=== PATIENT | female | born 1960 | race Caucasian/White ===

== ENCOUNTER 2018-04-01 13:09 | Emergency (ER) | payer MEDICARE, MEDICAID ==
[~2018-04-01] VITALS: Ht 157.5 cm; Wt 82.3 kg
[~2018-04-01 13:09] MED LIST: CYCL-1 PO; FLUO20CA39 PO; HYDR1TAB PO; MOT200T PO
[2018-04-01 13:31] VITALS: BP 130/78
== END 2018-04-01 14:37 | disposition home or self-care (01) ==
LOC: ER 13:10
DX: H83.8X3 Other specified diseases of inner ear, bilateral (principal); G89.29 Other chronic pain; R10.84 Generalized abdominal pain; J45.909 Unspecified asthma, uncomplicated; M19.90 Unspecified osteoarthritis, unspecified site; Z90.49 Acquired absence of other specified parts of digestive tract; Z90.710 Acquired absence of both cervix and uterus; Z87.442 Personal history of urinary calculi; Z88.5 Allergy status to narcotic agent; Z79.899 Other long term (current) drug therapy
CPT/HCPCS: 99281

== ENCOUNTER 2018-04-08 13:57 | Emergency (ER) | payer MEDICARE, MEDICAID ==
[~2018-04-08] VITALS: Ht 157.5 cm; Wt 69.0 kg
[2018-04-08] MEDS ORDERED: ATRNS (15:03)
[2018-04-08 16:09] VITALS: BP 128/99
== END 2018-04-08 16:12 | disposition home or self-care (01) ==
LOC: ER 13:57
DX: H61.22 Impacted cerumen, left ear (principal); H66.93 Otitis media, unspecified, bilateral; J34.3 Hypertrophy of nasal turbinates
CPT/HCPCS: 99282

== ENCOUNTER 2018-09-28 12:20 | Emergency (ER) | payer MEDICARE, MEDICAID ==
[~2018-09-28] VITALS: Ht 157.5 cm; Wt 84.1 kg
[~2018-09-28 12:20] MED LIST changes: +ATRNS
[2018-09-28 12:22] VITALS: BP 149/83
[2018-09-28] MEDS ORDERED: CIPR7.5D2 LEFT EAR (13:19)
[2018-09-28] MEDS ORDERED: ACET-2119 PO (13:19)
[2018-09-28] MEDS ORDERED: DEC4T PO (13:19)
== END 2018-09-28 13:38 | disposition home or self-care (01) ==
LOC: ER 12:20
DX: H60.92 Unspecified otitis externa, left ear (principal); M54.2 Cervicalgia; J45.909 Unspecified asthma, uncomplicated; M19.90 Unspecified osteoarthritis, unspecified site; Z90.49 Acquired absence of other specified parts of digestive tract; Z90.710 Acquired absence of both cervix and uterus; Z88.5 Allergy status to narcotic agent; Z79.2 Long term (current) use of antibiotics; Z79.899 Other long term (current) drug therapy
CPT/HCPCS: 99283

== ENCOUNTER 2019-06-09 10:45 | Emergency (ER) | payer MEDICARE, MEDICAID ==
[~2019-06-09] VITALS: Ht 149.9 cm; Wt 86.0 kg
[~2019-06-09 10:45] MED LIST changes: +CIPR7.5D2 LEFT EAR
[2019-06-09 10:57] VITALS: BP 151/77
[2019-06-09] MEDS ORDERED: NEOM10DR45 OT (12:17)
== END 2019-06-09 12:34 | disposition home or self-care (01) ==
LOC: ER 10:45
DX: H61.21 Impacted cerumen, right ear (principal); H60.91 Unspecified otitis externa, right ear; J45.909 Unspecified asthma, uncomplicated; M19.90 Unspecified osteoarthritis, unspecified site; F41.9 Anxiety disorder, unspecified; F32.9 Major depressive disorder, single episode, unspecified; Z90.49 Acquired absence of other specified parts of digestive tract; Z87.442 Personal history of urinary calculi; Z90.710 Acquired absence of both cervix and uterus; Z88.5 Allergy status to narcotic agent; Z79.2 Long term (current) use of antibiotics; Z79.899 Other long term (current) drug therapy
CPT/HCPCS: 69209; 99283

== ENCOUNTER 2019-09-16 18:02 | Emergency (ER) | payer MEDICARE, MEDICAID ==
[~2019-09-16] VITALS: Ht 157.5 cm; Wt 93.2 kg
[2019-09-16 18:06] VITALS: BP 173/90
[2019-09-16] MEDS ORDERED: HYDROcodone/acetaminophen 5mg/325mg tablet PO ONE (18:45)
[2019-09-16 18:46] LABS: CLARITY,URINE CLOUDY (Clear); COLOR,URINE YELLOW (Yellow); GLUCOSE, URINE NEGATIVE (Neg); KETONES,URINE NEGATIVE (Neg); LEUKOCYTE ESTERASE ,URINE NEGATIVE (Neg); NITRITES, URINE NEGATIVE (Neg); OCCULT BLOOD,URINE TRACE-INTACT (Neg); PROTEIN,URINE TRACE mg/dl (Neg); UROBILINOGEN,URINE 0.2 E.U/dL (0.2-1.0)
[2019-09-16 18:47] LABS: URINE HCG NEGATIVE (NEG)
[2019-09-16 18:48] LABS: UA COLLECTION TYPE CLN CATCH MIDSTREAM
[2019-09-16 18:52] LABS: SQUAMOUS EPITHELIAL CELL,UR MANY /LPF (FEW)
[2019-09-16 18:53] LABS: BASOPHILS # (AUTO) 0.1 X10'3 (0-0.2); BASOPHILS % (AUTO) 0.9 % (0-1); EOSINOPHILS # (AUTO) 0.1 X10'3 (0-0.9); EOSINOPHILS % (AUTO) 1.5 % (0-6); HEMATOCRIT 38.2 % (35.0-45.0); HEMOGLOBIN 12.8 g/dl (12.0-16.0); LYMPHOCYTES # (AUTO) 3.2 X10'3 (1.1-4.8); LYMPHOCYTES % (AUTO) 45.1 % (21-51); MEAN CORPUSCULAR HEMOGLOBIN 30.3 PG (27.0-31.0); MEAN CORPUSCULAR HGB CONC 33.5 g/dL (33.0-36.5); MEAN CORPUSCULAR VOLUME 90.3 FL (78-98); MEAN PLATELET VOLUME 7.9 FL (7.4-10.4); MONOCYTES # (AUTO) 0.7 X10'3 (0-0.9); MONOCYTES % (AUTO) 9.2 % (2-12); NEUTROPHILS % (AUTO) 43.3 % (42-75); PLATELET COUNT 326 X10'3 (140-440); RED BLOOD COUNT 4.23 X10'6 (4.20-5.60); RED CELL DISTRIBUTION WIDTH 13.5 % (11.5-14.5); WHITE BLOOD COUNT 7.1 X10'3 (4.5-11.0)
[2019-09-16 18:54] LABS: BACTERIA,URINE FEW /HPF (Neg); WBC,URINE 0-4 /HPF (0-4)
[2019-09-16 18:59] LABS: ALANINE AMINOTRANSFERASE 47 U/L (12-78); ALKALINE PHOSPHATASE 99 IU/L (46-116); ANION GAP 9 (8-16); ASPARTATE AMINO TRANSFERASE 27 U/L (10-37); BILIRUBIN,TOTAL 0.2 MG/DL (0.1-1.0); BLOOD UREA NITROGEN 14 MG/DL (7-18); BUN/CREATININE RATIO 10.7 (6.6-38.0); CHLORIDE 106 MMOL/L (99-107); CREATININE 1.31 MG/DL (0.40-0.90); GLUCOSE 141 MG/DL (70-104); LIPASE 230 U/L (73-393); POTASSIUM 3.8 MMOL/L (3.5-5.1); SODIUM 143 MMOL/L (135-145); TOTAL CARBON DIOXIDE 27.8 MMOL/L (24-32); TOTAL PROTEIN 8.1 G/DL (6.4-8.2); eGFR 42 ML/MIN
[2019-09-16] MEDS ORDERED: morphine 4 MG/ML inj SYRINge IM ONE (19:10)
[2019-09-16] MEDS ORDERED: ACET-2119 PO (19:20)
[2019-09-16] MEDS ORDERED: acetaminophen 325mg tablet PO ONE (19:25)
== END 2019-09-16 19:34 | disposition home or self-care (01) ==
LOC: ER 18:03
DX: R10.9 Unspecified abdominal pain (principal); R07.81 Pleurodynia; M54.9 Dorsalgia, unspecified; J45.909 Unspecified asthma, uncomplicated; M19.90 Unspecified osteoarthritis, unspecified site; F41.9 Anxiety disorder, unspecified; F32.9 Major depressive disorder, single episode, unspecified; F10.99 Alcohol use, unspecified with unspecified alcohol-induced disorder; Z87.442 Personal history of urinary calculi; Z90.49 Acquired absence of other specified parts of digestive tract; Z90.710 Acquired absence of both cervix and uterus; Z90.5 Acquired absence of kidney; Z88.5 Allergy status to narcotic agent; Z79.899 Other long term (current) drug therapy; Y90.9 Presence of alcohol in blood, level not specified
CPT/HCPCS: 36415; 80053; 81001; 81025; 83690; 85025; 99283

== ENCOUNTER 2020-06-15 10:28 | Emergency (ER) | payer MEDICARE, MEDICAID ==
[~2020-06-15] VITALS: Ht 149.9 cm; Wt 81.8 kg
[2020-06-15 10:32] VITALS: BP 136/75
[2020-06-15] MEDS ORDERED: AMOX-419 PO (10:42)
== END 2020-06-15 10:54 | disposition home or self-care (01) ==
LOC: ER 10:28
DX: H66.92 Otitis media, unspecified, left ear (principal); M19.90 Unspecified osteoarthritis, unspecified site; F32.9 Major depressive disorder, single episode, unspecified; J45.909 Unspecified asthma, uncomplicated; R05 Cough; J02.9 Acute pharyngitis, unspecified; Z90.710 Acquired absence of both cervix and uterus; Z90.49 Acquired absence of other specified parts of digestive tract; Z72.89 Other problems related to lifestyle; Z88.5 Allergy status to narcotic agent; Z79.899 Other long term (current) drug therapy
CPT/HCPCS: 99284

== ENCOUNTER 2020-06-17 11:42 | Emergency (ER) | payer MEDICARE, MEDICAID ==
[~2020-06-17] VITALS: Ht 149.9 cm; Wt 81.8 kg
[~2020-06-17 11:42] MED LIST changes: +AMOX-419 PO
[2020-06-17 11:44] VITALS: BP 130/74
[2020-06-17] MEDS ORDERED: ALBU6.7H9 INH (11:53)
== END 2020-06-17 12:13 | disposition home or self-care (01) ==
LOC: ER 11:42
DX: J06.9 Acute upper respiratory infection, unspecified (principal); R05 Cough; H92.02 Otalgia, left ear; J45.909 Unspecified asthma, uncomplicated; M19.90 Unspecified osteoarthritis, unspecified site; F41.9 Anxiety disorder, unspecified; F32.9 Major depressive disorder, single episode, unspecified; Z87.440 Personal history of urinary (tract) infections; Z87.442 Personal history of urinary calculi; Z90.49 Acquired absence of other specified parts of digestive tract; Z90.710 Acquired absence of both cervix and uterus; Z72.89 Other problems related to lifestyle; Z88.5 Allergy status to narcotic agent; Z79.2 Long term (current) use of antibiotics; Z79.899 Other long term (current) drug therapy
CPT/HCPCS: 99283

== ENCOUNTER 2020-08-29 11:59 | Emergency (ER) | payer MEDICARE, MEDICAID ==
[~2020-08-29] VITALS: Ht 149.9 cm; Wt 82.3 kg
[~2020-08-29 11:59] MED LIST changes: +ALBU6.7H9 INH; -AMOX-419 PO
[2020-08-29 12:03] VITALS: BP 131/77
[2020-08-29] MEDS ORDERED: TETanus/Pertussis (Acell)/Diphther VAC/PF (Tdap-Adult) 0.5ml syringe IMVAC ONE (12:55)
[2020-08-29] MEDS ORDERED: LIDOcaine/epinephrine/tetracaine TOPICAL sol 3 ML syringe TOP ONE (12:55)
[2020-08-29] MEDS ORDERED: BACI1PAC7 TOP (13:00)
== END 2020-08-29 13:47 | disposition home or self-care (01) ==
LOC: ER 11:59
DX: S60.411A Abrasion of left index finger, initial encounter (principal); M19.90 Unspecified osteoarthritis, unspecified site; F41.9 Anxiety disorder, unspecified; F32.9 Major depressive disorder, single episode, unspecified; J45.909 Unspecified asthma, uncomplicated; Z90.49 Acquired absence of other specified parts of digestive tract; Z90.710 Acquired absence of both cervix and uterus; Z88.5 Allergy status to narcotic agent; Z79.899 Other long term (current) drug therapy; W45.8XXA Other foreign body or object entering through skin, initial encounter; Y93.89 Activity, other specified; Y92.89 Other specified places as the place of occurrence of the external cause; Y99.8 Other external cause status
CPT/HCPCS: 12001; 90471; 90715; 99283

== ENCOUNTER → 2020-11-18 | Emergency (ER) | payer MEDICARE, MEDICAID ==
[~2020-11-18] VITALS: Ht 149.9 cm; Wt 83.3 kg
[2020-11-18 08:42] VITALS: BP 121/77
== END | disposition home or self-care (01) ==
LOC: ER 08:32
DX: R20.2 Paresthesia of skin (principal); R20.0 Anesthesia of skin; I50.9 Heart failure, unspecified; I13.0 Hypertensive heart and chronic kidney disease with heart failure and stage 1 through stage 4 chronic kidney disease, or unspecified chronic kidney disease; N18.9 Chronic kidney disease, unspecified; M19.90 Unspecified osteoarthritis, unspecified site; F41.9 Anxiety disorder, unspecified; F32.9 Major depressive disorder, single episode, unspecified; Z90.49 Acquired absence of other specified parts of digestive tract; Z72.89 Other problems related to lifestyle; Z88.5 Allergy status to narcotic agent; Z79.899 Other long term (current) drug therapy
CPT/HCPCS: 99281

== ENCOUNTER 2021-01-09 11:46 | Emergency (ER) | payer MEDICARE, MEDICAID ==
[~2021-01-09] VITALS: Ht 157.5 cm; Wt 90.0 kg
[2021-01-09 11:47] VITALS: BP 125/74
[2021-01-09] MEDS ORDERED: acetaminophen 325mg tablet PO ONE (12:45)
== END 2021-01-09 17:59 | disposition home or self-care (01) ==
LOC: ER 11:47
DX: S93.401A Sprain of unspecified ligament of right ankle, initial encounter (principal); S80.211A Abrasion, right knee, initial encounter; M25.571 Pain in right ankle and joints of right foot; R53.1 Weakness; J45.909 Unspecified asthma, uncomplicated; I13.0 Hypertensive heart and chronic kidney disease with heart failure and stage 1 through stage 4 chronic kidney disease, or unspecified chronic kidney disease; N18.9 Chronic kidney disease, unspecified; M19.90 Unspecified osteoarthritis, unspecified site; F41.9 Anxiety disorder, unspecified; F32.9 Major depressive disorder, single episode, unspecified; Z87.442 Personal history of urinary calculi; Z87.440 Personal history of urinary (tract) infections; Z90.49 Acquired absence of other specified parts of digestive tract; Z90.710 Acquired absence of both cervix and uterus; Z72.89 Other problems related to lifestyle; Z88.5 Allergy status to narcotic agent; Z79.2 Long term (current) use of antibiotics; Z79.899 Other long term (current) drug therapy; W19.XXXA Unspecified fall, initial encounter; Y93.89 Activity, other specified; Y92.89 Other specified places as the place of occurrence of the external cause; Y99.8 Other external cause status
CPT/HCPCS: 73610; 99283

== ENCOUNTER 2021-06-17 12:59 | Emergency (ER) | payer BC, MEDICAID ==
[~2021-06-17] VITALS: Ht 149.9 cm; Wt 81.8 kg
[2021-06-17] MEDS ORDERED: CARB15DR65 EACH EAR (14:04)
== END 2021-06-17 14:13 | disposition home or self-care (01) ==
LOC: ER 13:00
DX: U07.1 COVID-19 (principal); J02.9 Acute pharyngitis, unspecified; R05 Cough; H61.23 Impacted cerumen, bilateral; I13.0 Hypertensive heart and chronic kidney disease with heart failure and stage 1 through stage 4 chronic kidney disease, or unspecified chronic kidney disease; N18.9 Chronic kidney disease, unspecified; J45.909 Unspecified asthma, uncomplicated; M19.90 Unspecified osteoarthritis, unspecified site; F41.9 Anxiety disorder, unspecified; F32.9 Major depressive disorder, single episode, unspecified; Z87.442 Personal history of urinary calculi; Z87.440 Personal history of urinary (tract) infections; Z90.49 Acquired absence of other specified parts of digestive tract; Z90.710 Acquired absence of both cervix and uterus; Z72.89 Other problems related to lifestyle; Z88.5 Allergy status to narcotic agent; Z79.2 Long term (current) use of antibiotics; Z79.899 Other long term (current) drug therapy
CPT/HCPCS: 87635; 99283; C9803

== ENCOUNTER 2021-06-18 19:09 | Emergency (ER) | payer BC, MEDICAID ==
[~2021-06-18] VITALS: Ht 144.8 cm; Wt 81.8 kg
[~2021-06-18 19:09] MED LIST changes: +CARB15DR65 EACH EAR
[2021-06-18] MEDS ORDERED: aspirin 81mg tab.chew PO ONE (20:00)
--- NOTE | 2021-06-18 20:18 | NUR ---
patient had complaint of crushing chest pain in lobby while waiting, now patient states her CP is gone, her ear is just really bothering her.
--- NOTE | 2021-06-18 20:26 | NUR ---
patient refusing IV
[2021-06-18 20:58] LABS: BASOPHILS % (AUTO) 0.3 % (0-1); EOSINOPHILS % (AUTO) 0.6 % (0-6); HEMATOCRIT 40.5 % (35.0-45.0); HEMOGLOBIN 13.5 g/dl (12.0-16.0); LYMPHOCYTES # (AUTO) 1.6 X10'3 (1.1-4.8); LYMPHOCYTES % (AUTO) 27.9 % (21-51); MEAN CORPUSCULAR HEMOGLOBIN 30.4 PG (27.0-31.0); MEAN CORPUSCULAR HGB CONC 33.5 g/dL (33.0-36.5); MEAN CORPUSCULAR VOLUME 90.7 FL (78-98); MEAN PLATELET VOLUME 7.5 FL (7.4-10.4); MONOCYTES # (AUTO) 0.5 X10'3 (0-0.9); MONOCYTES % (AUTO) 8.6 % (2-12); NEUTROPHILS # (AUTO) 3.7 X10'3 (1.8-7.7); NEUTROPHILS % (AUTO) 62.6 % (42-75); PLATELET COUNT 325 X10'3 (140-440); RED BLOOD COUNT 4.46 X10'6 (4.20-5.60); RED CELL DISTRIBUTION WIDTH 13.9 % (11.5-14.5); WHITE BLOOD COUNT 5.9 X10'3 (4.5-11.0)
[2021-06-18] MEDS ORDERED: ondansetron 4mg rapidly disintigrating tab PO ONE (21:00)
[2021-06-18 21:08] LABS: ALANINE AMINOTRANSFERASE 50 U/L (12-78); ALBUMIN 4.2 G/DL (3.4-5.0); ALBUMIN/GLOBULIN RATIO 1.1 (1.1-1.5); ALKALINE PHOSPHATASE 95 IU/L (46-116); ANION GAP 9 (8-16); ASPARTATE AMINO TRANSFERASE 24 U/L (10-37); BILIRUBIN,TOTAL 0.3 MG/DL (0.1-1.0); BLOOD UREA NITROGEN 19 MG/DL (7-18); BUN/CREATININE RATIO 11.5 (6.6-38.0); CALCIUM 8.5 MG/DL (8.5-10.1); CHLORIDE 105 MMOL/L (99-107); CREATININE 1.65 MG/DL (0.40-0.90); GLUCOSE 151 MG/DL (70-104); SODIUM 143 MMOL/L (135-145); TOTAL CARBON DIOXIDE 29.1 MMOL/L (24-32); TOTAL PROTEIN 8.1 G/DL (6.4-8.2); eGFR 32 ML/MIN
--- NOTE | 2021-06-18 21:12 | NUR ---
irrigated both ears, much ear wax and "gunk" came out, states that she can hear much better out of the right now and the left feels better but still not as good as the right. Patient also complained of being nauseous and dizzy after irrigation. KANNAN Melendez was made aware of patient symptoms, orders received, see mar. patient has cold compress to forehead and light turned off per patient request. VS are stable. will monitor.
[2021-06-18 21:15] LABS: MAGNESIUM 2.2 MG/DL (1.5-2.4)
[2021-06-18 23:41] VITALS: BP 145/71
--- NOTE | 2021-06-18 23:42 | NUR ---
PATIENT RECEIVED DC INSTRUCTIONS AND ACKNOWLEDGED UNDERSTANDING. [facility] WAS CALLED AND PATIENT WAS WALKED OUTSIDE TO WAIT. PATIENT WAS VERY AMICABLE AND THANKFUL FOR HER CARE. PATIENT DC HOME.
== END 2021-06-18 23:43 | disposition home or self-care (01) ==
LOC: ER 19:09
DX: H61.23 Impacted cerumen, bilateral (principal); R07.89 Other chest pain; F41.9 Anxiety disorder, unspecified; I13.0 Hypertensive heart and chronic kidney disease with heart failure and stage 1 through stage 4 chronic kidney disease, or unspecified chronic kidney disease; N18.9 Chronic kidney disease, unspecified; J45.909 Unspecified asthma, uncomplicated; M19.90 Unspecified osteoarthritis, unspecified site; F32.9 Major depressive disorder, single episode, unspecified; Z87.442 Personal history of urinary calculi; Z87.440 Personal history of urinary (tract) infections; Z90.49 Acquired absence of other specified parts of digestive tract; Z90.710 Acquired absence of both cervix and uterus; Z72.89 Other problems related to lifestyle; Z88.5 Allergy status to narcotic agent; Z79.2 Long term (current) use of antibiotics; Z79.899 Other long term (current) drug therapy
CPT/HCPCS: 36415; 69209; 71045; 80053; 83735; 83880; 84484; 85025; 93005; 99285

== ENCOUNTER 2022-05-06 16:04 | Emergency (ER) | payer BC, MEDICAID ==
[~2022-05-06] VITALS: Ht 149.9 cm; Wt 88.2 kg
[2022-05-06 16:38] VITALS: BP 100/73
[2022-05-06] MEDS ORDERED: ondansetron/PF 4mg/2ml inj IV ONE (16:45)
[2022-05-06] MEDS ORDERED: ketamine 50 mg/ml 10ml vial IV ONE (17:40)
[2022-05-06] MEDS ORDERED: LIDOcaine 1% W/epiNEPHrine 1:100,000 20ml vial SQ ONE (17:50)
--- NOTE | 2022-05-06 17:55 | NUR ---
LIDOCAIN PLACED AT BEDSIDE FOR ER MD
[2022-05-06] MEDS: morphine 4 MG/ML inj SYRINge IV PRN ×2 (19:05→19:06)
== END 2022-05-06 19:09 | disposition home or self-care (01) ==
LOC: ER 16:05
DX: S52.501A Unspecified fracture of the lower end of right radius, initial encounter for closed fracture (principal); W19.XXXA Unspecified fall, initial encounter; Y93.89 Activity, other specified; Y92.89 Other specified places as the place of occurrence of the external cause; Y99.8 Other external cause status
CPT/HCPCS: 25605; 73100; 73110; 94799; 99284; J3490; A4565; A4615; A6449

== ENCOUNTER 2022-05-15 23:49 | Emergency (ER) | payer BC, MEDICAID ==
[~2022-05-15] VITALS: Ht 149.9 cm; Wt 83.2 kg
[2022-05-16 02:41] LABS: BASOPHILS % (AUTO) 0.6 % (0-1); EOSINOPHILS # (AUTO) 0.3 X10'3 (0-0.9); EOSINOPHILS % (AUTO) 4.2 % (0-6); HEMATOCRIT 37.4 % (35.0-45.0); HEMOGLOBIN 12.4 g/dl (12.0-16.0); LYMPHOCYTES # (AUTO) 2.7 X10'3 (1.1-4.8); MEAN CORPUSCULAR HEMOGLOBIN 29.7 PG (27.0-31.0); MEAN CORPUSCULAR HGB CONC 33.2 g/dL (33.0-36.5); MEAN CORPUSCULAR VOLUME 89.4 FL (78-98); MEAN PLATELET VOLUME 7.7 FL (7.4-10.4); MONOCYTES % (AUTO) 11.9 % (2-12); NEUTROPHILS % (AUTO) 50.3 % (42-75); PLATELET COUNT 378 X10'3 (140-440); RED BLOOD COUNT 4.18 X10'6 (4.20-5.60); RED CELL DISTRIBUTION WIDTH 13.9 % (11.5-14.5)
[2022-05-16 02:57] LABS: ALANINE AMINOTRANSFERASE 53 U/L (12-78); ALKALINE PHOSPHATASE 112 IU/L (46-116); ANION GAP 13 (8-16); ASPARTATE AMINO TRANSFERASE 24 U/L (10-37); BILIRUBIN,TOTAL 0.3 MG/DL (0.1-1.0); BLOOD UREA NITROGEN 19 MG/DL (7-18); CHLORIDE 107 MMOL/L (99-107); CREATININE 1.46 MG/DL (0.40-0.90); GLUCOSE 124 MG/DL (70-104); POTASSIUM 3.9 MMOL/L (3.5-5.1); SODIUM 144 MMOL/L (135-145); TOTAL CARBON DIOXIDE 24.3 MMOL/L (24-32); TOTAL PROTEIN 8.2 G/DL (6.4-8.2); eGFR 37 ML/MIN
[2022-05-16 05:29] VITALS: BP 92/74
== END 2022-05-16 06:50 | disposition home or self-care (01) ==
LOC: ER 23:51
DX: J06.9 Acute upper respiratory infection, unspecified (principal); Z20.822 Contact with and (suspected) exposure to COVID-19; I13.0 Hypertensive heart and chronic kidney disease with heart failure and stage 1 through stage 4 chronic kidney disease, or unspecified chronic kidney disease; E11.22 Type 2 diabetes mellitus with diabetic chronic kidney disease; Z79.2 Long term (current) use of antibiotics; N18.9 Chronic kidney disease, unspecified; Z88.5 Allergy status to narcotic agent; Z79.899 Other long term (current) drug therapy; Z59.00 Homelessness unspecified
CPT/HCPCS: 36415; 71045; 80053; 83880; 84484; 85025; 87502; 87503; 87635; 93005; 99285; C9803; A4615

== ENCOUNTER 2024-02-13 10:01 | Emergency (ER) | payer BC, MEDICAID ==
[~2024-02-13] VITALS: Ht 149.9 cm; Wt 90.0 kg
[~2024-02-13 10:01] MED LIST changes: +ALBU6.7H14 INH; -ALBU6.7H9 INH
[2024-02-13 10:05] VITALS: TEMP 98.7
[2024-02-13 10:59] LABS: BASOPHILS # (AUTO) 0.1 X10'3 (0-0.2); BASOPHILS % (AUTO) 0.9 % (0-1); EOSINOPHILS # (AUTO) 0.2 X10'3 (0-0.9); EOSINOPHILS % (AUTO) 2.7 % (0-6); HEMATOCRIT 39.2 % (35.0-45.0); HEMOGLOBIN 13.1 g/dl (12.0-16.0); LYMPHOCYTES # (AUTO) 2.9 X10'3 (1.1-4.8); LYMPHOCYTES % (AUTO) 40.3 % (21-51); MEAN CORPUSCULAR HEMOGLOBIN 30.6 PG (27.0-31.0); MEAN CORPUSCULAR HGB CONC 33.4 g/dL (33.0-36.5); MEAN CORPUSCULAR VOLUME 91.6 FL (78-98); MEAN PLATELET VOLUME 7.7 FL (7.4-10.4); MONOCYTES # (AUTO) 0.5 X10'3 (0-0.9); MONOCYTES % (AUTO) 6.7 % (2-12); NEUTROPHILS # (AUTO) 3.5 X10'3 (1.8-7.7); NEUTROPHILS % (AUTO) 49.4 % (42-75); PLATELET COUNT 363 X10'3 (140-440); RED BLOOD COUNT 4.28 X10'6 (4.20-5.60); RED CELL DISTRIBUTION WIDTH 14.2 % (11.5-14.5); WHITE BLOOD COUNT 7.1 X10'3 (4.5-11.0)
[2024-02-13 11:27] LABS: BILIRUBIN,URINE NEGATIVE (Neg); CLARITY,URINE SLIGHTLY CLOUDY (Clear); COLOR,URINE YELLOW (Yellow); GLUCOSE, URINE NEGATIVE (Neg); KETONES,URINE NEGATIVE (Neg); LEUKOCYTE ESTERASE ,URINE NEGATIVE (Neg); NITRITES, URINE NEGATIVE (Neg); OCCULT BLOOD,URINE TRACE-INTACT (Neg); PROTEIN,URINE TRACE mg/dl (Neg); UROBILINOGEN,URINE 0.2 E.U/dL (0.2-1.0)
[2024-02-13 11:37] LABS: ALANINE AMINOTRANSFERASE 35 U/L (12-78); ALBUMIN 3.5 G/DL (3.4-5.0); ALBUMIN/GLOBULIN RATIO 0.9 (1.1-1.5); ALKALINE PHOSPHATASE 91 IU/L (46-116); ANION GAP 10 (8-16); ASPARTATE AMINO TRANSFERASE 16 U/L (10-37); BILIRUBIN,TOTAL 0.5 MG/DL (0.1-1.0); BLOOD UREA NITROGEN 17 MG/DL (7-18); BUN/CREATININE RATIO 11.8 (10.0-20.0); CALCIUM 9.1 MG/DL (8.5-10.1); CHLORIDE 106 MMOL/L (99-107); CREATININE 1.44 MG/DL (0.40-0.90); GLUCOSE 164 MG/DL (70-104); LIPASE 49 U/L (16-77); POTASSIUM 3.6 MMOL/L (3.5-5.1); SODIUM 143 MMOL/L (135-145); TOTAL CARBON DIOXIDE 26.6 MMOL/L (24-32); TOTAL PROTEIN 7.6 G/DL (6.4-8.2); eCRCL 28 ML/MIN; eGFR 37 ML/MIN
[2024-02-13 11:43] LABS: SQUAMOUS EPITHELIAL CELL,UR MANY /LPF (FEW); UA COLLECTION TYPE NON-SPECIFIED
[2024-02-13 11:44] LABS: BACTERIA,URINE 2+ /HPF (Neg); RBC,URINE 0-2 /HPF (0-2); WBC,URINE 0-4 /HPF (0-4)
[2024-02-13 13:59] VITALS: BP 140/71; PULSE 74; RESP 18; O2SAT 99
== END 2024-02-13 14:00 | disposition home or self-care (01) ==
LOC: ER 10:01
DX: R10.84 Generalized abdominal pain (principal); Z88.8 Allergy status to other drugs, medicaments and biological substances; I11.0 Hypertensive heart disease with heart failure; I50.9 Heart failure, unspecified; E78.00 Pure hypercholesterolemia, unspecified; J45.909 Unspecified asthma, uncomplicated; E11.9 Type 2 diabetes mellitus without complications; M19.90 Unspecified osteoarthritis, unspecified site; F32.9 Major depressive disorder, single episode, unspecified; F41.9 Anxiety disorder, unspecified; Z90.49 Acquired absence of other specified parts of digestive tract; Z90.710 Acquired absence of both cervix and uterus
CPT/HCPCS: 36415; 74176; 80053; 81001; 83690; 85025; 99284

== ENCOUNTER 2024-02-29 21:15 | Inpatient (IN) | payer BC, MEDICAID ==
[~2024-02-29] VITALS: Ht 149.9 cm; Wt 90.0 kg
[2024-02-29 21:55] LABS: BASOPHILS # (AUTO) 0.1 X10'3 (0-0.2); BASOPHILS % (AUTO) 0.7 % (0-1); EOSINOPHILS # (AUTO) 0.1 X10'3 (0-0.9); EOSINOPHILS % (AUTO) 1.2 % (0-6); HEMATOCRIT 37.6 % (35.0-45.0); HEMOGLOBIN 12.5 g/dl (12.0-16.0); LYMPHOCYTES # (AUTO) 3.1 X10'3 (1.1-4.8); LYMPHOCYTES % (AUTO) 26.6 % (21-51); MEAN CORPUSCULAR HEMOGLOBIN 30.4 PG (27.0-31.0); MEAN CORPUSCULAR HGB CONC 33.4 g/dL (33.0-36.5); MEAN CORPUSCULAR VOLUME 91.1 FL (78-98); MEAN PLATELET VOLUME 7.2 FL (7.4-10.4); MONOCYTES % (AUTO) 8.9 % (2-12); NEUTROPHILS # (AUTO) 7.3 X10'3 (1.8-7.7); NEUTROPHILS % (AUTO) 62.6 % (42-75); PLATELET COUNT 376 X10'3 (140-440); RED BLOOD COUNT 4.13 X10'6 (4.20-5.60); RED CELL DISTRIBUTION WIDTH 14.1 % (11.5-14.5); WHITE BLOOD COUNT 11.7 X10'3 (4.5-11.0)
[2024-02-29] MEDS: ketorolac tromethamine 15mg/ml inj. IM ONE (22:02)
[2024-02-29] MEDS: HYDROcodone/acetaminophen 10/325mg tab PO ONE (22:02)
[2024-02-29] MEDS: ondansetron 4mg rapidly disintigrating tab PO ONE (22:04)
[2024-02-29 22:11] LABS: ALANINE AMINOTRANSFERASE 30 U/L (12-78); ALBUMIN 3.4 G/DL (3.4-5.0); ALBUMIN/GLOBULIN RATIO 0.8 (1.1-1.5); ALKALINE PHOSPHATASE 99 IU/L (46-116); ANION GAP 12 (8-16); ASPARTATE AMINO TRANSFERASE 13 U/L (10-37); BILIRUBIN,TOTAL 0.3 MG/DL (0.1-1.0); BLOOD UREA NITROGEN 23 MG/DL (7-18); BUN/CREATININE RATIO 16.4 (10.0-20.0); CALCIUM 9.5 MG/DL (8.5-10.1); CHLORIDE 107 MMOL/L (99-107); GLUCOSE 145 MG/DL (70-104); POTASSIUM 3.8 MMOL/L (3.5-5.1); SODIUM 145 MMOL/L (135-145); TOTAL CARBON DIOXIDE 26.4 MMOL/L (24-32); TOTAL PROTEIN 7.5 G/DL (6.4-8.2); eCRCL 28 ML/MIN; eGFR 38 ML/MIN
[2024-02-29 22:15] LABS: BILIRUBIN,URINE NEGATIVE (Neg); CLARITY,URINE SLIGHTLY CLOUDY (Clear); COLOR,URINE YELLOW (Yellow); GLUCOSE, URINE NEGATIVE (Neg); KETONES,URINE NEGATIVE (Neg); LEUKOCYTE ESTERASE ,URINE NEGATIVE (Neg); NITRITES, URINE NEGATIVE (Neg); OCCULT BLOOD,URINE MODERATE (Neg); PROTEIN,URINE 30 mg/dl (Neg); UROBILINOGEN,URINE 0.2 E.U/dL (0.2-1.0)
[2024-02-29 22:16] LABS: UA COLLECTION TYPE CLN CATCH MIDSTREAM
[2024-02-29 22:26] LABS: BACTERIA,URINE 1+ /HPF (Neg); MUCUS STRANDS NONE SEEN /LPF (Neg); RBC,URINE 20-50 /HPF (0-2); SQUAMOUS EPITHELIAL CELL,UR FEW /LPF (FEW); WBC,URINE 0-4 /HPF (0-4)
[2024-03-01] VITALS (22 sets, daily range): BP systolic 122–179; BP diastolic 55–92; PULSE 75–99; RESP 13–26; TEMP 97–98.7; O2SAT 18–99
[2024-03-01] MEDS ORDERED: magnesium 4gm in 100ml NS 100 ML IV PRN (02:55)
[2024-03-01] MEDS ORDERED: magnesium hydroxide 30ml (MOM) UD suspension PO PRN (02:55)
[2024-03-01] MEDS ORDERED: magnesium 2GM in 50ml NS 50 ML IV PRN (02:55)
[2024-03-01] MEDS ORDERED: mag hydrox/Alum hydrox/simeth 30ml oral suspension PO PRN (02:55)
[2024-03-01] MEDS ORDERED: potassium Cl 40MEQ/1/2NS 520ml 520 ML IV PRN (02:55)
[2024-03-01] MEDS ORDERED: potassium Cl 20 mEq SR tablet PO PRN ×2 (02:55)
[2024-03-01] MEDS ORDERED: acetaminophen 325mg tablet PO PRN (02:55)
[2024-03-01] MEDS ORDERED: magnesium Cl slow-release 64mg tablet PO PRN (02:55)
[2024-03-01] MEDS: ringers solution, lacted 1,000 ML IV SCH ×2 (03:33→13:25)
[2024-03-01] MEDS: HYDROmorphone 1 mg/ml syringe IV PRN (03:44)
[2024-03-01] MEDS: ondansetron/PF 4mg/2ml inj IV PRN (03:51)
[2024-03-01] MEDS: heparin, porcine 5000 units/ml vial SQ SCH (07:39)
[2024-03-01] MEDS: K and/or MAG REPLACEMENT MC SCH (07:39)
[2024-03-01] MEDS: docusate sod 100mg capsule PO SCH (07:40)
[2024-03-01] MEDS ORDERED: fentaNYL/PF 50MCG/1 ML 2ML syringe IV PRN (07:50)
[2024-03-01] MEDS ORDERED: HYDROmorphone 2mg tablet PO PRN (08:30)
[2024-03-01] MEDS ORDERED: HYDROmorphone 1 mg/ml syringe IV PRN (08:30)
[2024-03-01 08:35] LABS: HEMOGLOBIN A1C 6.6 % (4.5-6.2)
[2024-03-01 09:00] LABS: CHOL/HDL RATIO 4.8 (0.00-4.99); CHOLESTEROL 182 MG/DL (0-200); FREE T4 (FREE THYROXINE) 1.24 NG/DL (0.73-1.40); HDL CHOLESTEROL 38 MG/DL (35-60); LDL CHOLESTEROL 97 MG/DL (50-100); THYROID STIMULATING HORMONE 1.42 ulU/ml (0.34-4.50); TRIGLYCERIDES 237 MG/DL (20-135)
[2024-03-01 09:31] LABS: APTT 24 SECONDS (22-32); PROTHROMBIN TIME 9.8 SECONDS (9.0-12.0)
[2024-03-01 09:39] LABS: INR 0.9 INR
[2024-03-01] MEDS: acetaminophen 325mg tablet PO PRN (10:27)
[2024-03-01] MEDS: ceFAZolin/D5W- 1GM premix 50 ML IV SCH (12:26)
[2024-03-01] MEDS ORDERED: meperidine/PF 25mg/ml syringe IV PRN (13:25)
[2024-03-01] MEDS ORDERED: HYDROmorphone/PF 0.2 MG/ML SYRINGE IV PRN ×2 (13:25)
[2024-03-01] MEDS ORDERED: proCHLORperazine 10 MG/2 ml inj IV PRN (13:25)
[2024-03-01] MEDS ORDERED: hydrALAZINE 20mg/ml inj. IV PRN (13:25)
[2024-03-01] MEDS ORDERED: morphine 2 MG/ML inj. syringe IV PRN (13:25)
[2024-03-01] MEDS: acetaminophen 1,000mg/100ml IV 100 ML IV ONE (13:25)
[2024-03-01] MEDS ORDERED: ondansetron/PF 4mg/2ml inj IV PRN (13:25)
[2024-03-01] MEDS ORDERED: morphine 4 MG/ML inj SYRINge IV PRN (13:25)
[2024-03-01] MEDS ORDERED: iohexol 300 MG/1 ML 50ml polymer ONE (13:59)
[2024-03-01] MEDS ORDERED: sevoflurane 250ml liquid IH ONE (14:25)
[2024-03-01] MEDS ORDERED: fentaNYL/PF 50MCG/1 ML 2ML syringe ONE (14:35)
[2024-03-01] MEDS ORDERED: midazolam 1 mg/ML 2ml injection ONE (14:36)
[2024-03-01] MEDS ORDERED: ceFAZolin 1000mg inj ONE ×2 (14:48)
[2024-03-01] MEDS ORDERED: ondansetron/PF 4mg/2ml inj ONE (14:48)
[2024-03-01] MEDS ORDERED: dexamethasone sod phosphate 4mg/ml inj. ONE (14:48)
[2024-03-01] MEDS ORDERED: propofol inj 20 ML IV ONE (14:48)
[2024-03-01] MEDS ORDERED: 0.9 % SODIUM CHLORIDE 10 ML VIAL ONE (14:48)
[2024-03-01] MEDS ORDERED: LIDOcaine 2% (20mg/ml) 5ml vial ONE (14:48)
[2024-03-01] MEDS: iohexol 300 MG/1 ML 10ml vial IV ONE (15:00)
[2024-03-01] MEDS ORDERED: ePHEDrine 50MG/ML INJ. ONE (15:43)
[2024-03-01] MEDS: labetalol 20mg/4ml (5mg/ml) syringe IV PRN (16:00)
[2024-03-01] MEDS: proCHLORperazine 10 MG/2 ml inj IV PRN (16:25)
[2024-03-01] MEDS: oxybutynin 5mg tablet PO PRN (21:25)
[2024-03-01] MEDS: tamsulosin 0.4mg capsule PO SCH (21:26)
[2024-03-01] MEDS: phenazopyridine 100mg tablet PO PRN (21:27)
[2024-03-02 02:00] VITALS: BP 118/52; PULSE 70; RESP 12; TEMP 97.6; O2SAT 98
[2024-03-02 03:24] VITALS: BP 151/74; PULSE 87; O2SAT 95
[2024-03-02 05:49] LABS: BASOPHILS % (AUTO) 0.2 % (0-1); EOSINOPHILS % (AUTO) 0 % (0-6); HEMATOCRIT 34.5 % (35.0-45.0); HEMOGLOBIN 11.5 g/dl (12.0-16.0); LYMPHOCYTES # (AUTO) 1.2 X10'3 (1.1-4.8); LYMPHOCYTES % (AUTO) 12.8 % (21-51); MEAN CORPUSCULAR HEMOGLOBIN 30.9 PG (27.0-31.0); MEAN CORPUSCULAR HGB CONC 33.5 g/dL (33.0-36.5); MEAN CORPUSCULAR VOLUME 92.2 FL (78-98); MEAN PLATELET VOLUME 7.6 FL (7.4-10.4); MONOCYTES # (AUTO) 0.3 X10'3 (0-0.9); MONOCYTES % (AUTO) 3.3 % (2-12); NEUTROPHILS # (AUTO) 7.9 X10'3 (1.8-7.7); NEUTROPHILS % (AUTO) 83.7 % (42-75); PLATELET COUNT 331 X10'3 (140-440); RED BLOOD COUNT 3.74 X10'6 (4.20-5.60); RED CELL DISTRIBUTION WIDTH 14.1 % (11.5-14.5); WHITE BLOOD COUNT 9.5 X10'3 (4.5-11.0)
[2024-03-02 06:28] LABS: ALANINE AMINOTRANSFERASE 278 U/L (12-78); ALBUMIN/GLOBULIN RATIO 0.7 (1.1-1.5); ALKALINE PHOSPHATASE 120 IU/L (46-116); ANION GAP 13 (8-16); ASPARTATE AMINO TRANSFERASE 170 U/L (10-37); BILIRUBIN,TOTAL 0.2 MG/DL (0.1-1.0); BLOOD UREA NITROGEN 22 MG/DL (7-18); BUN/CREATININE RATIO 13.5 (10.0-20.0); CALCIUM 8.8 MG/DL (8.5-10.1); CHLORIDE 107 MMOL/L (99-107); CREATININE 1.63 MG/DL (0.40-0.90); GLUCOSE 182 MG/DL (70-104); PHOSPHORUS 4.3 MG/DL (2.3-4.5); SODIUM 145 MMOL/L (135-145); TOTAL CARBON DIOXIDE 25.4 MMOL/L (24-32); TOTAL PROTEIN 7.1 G/DL (6.4-8.2); eCRCL 24 ML/MIN; eGFR 32 ML/MIN
[2024-03-02 06:42] VITALS: BP 125/63; PULSE 84; RESP 20; TEMP 97; O2SAT 92
[2024-03-02 08:00] VITALS: RESP 16
[2024-03-02] MEDS ORDERED: ACET-1008 PO ×2 (11:10→11:13)
[2024-03-02] MEDS ORDERED: tamsulosin capsule PO (11:12)
[2024-03-02] MEDS ORDERED: OXYB5TAB21 PO (11:12)
[2024-03-02] MEDS ORDERED: CIPR-259 PO (11:12)
== END 2024-03-02 14:12 | disposition home health service (06) | DRG 660 ==
LOC: ER 21:15 → ED HOLD 03-01 02:52 → SUR 3N 03-01 05:25
PROVIDERS: ADMIT Student in an Organized Health Care Education/Training Program; ATTEND Internal Medicine
PROC: BT1D1ZZ Fluoroscopy of Right Kidney, Ureter and Bladder using Low Osmolar Contrast (ICD-10-PCS; 2024-03-01)
PROC: 0TC68ZZ Extirpation of Matter from Right Ureter, Via Natural or Artificial Opening Endoscopic (ICD-10-PCS; 2024-03-01)
PROC: 0T768DZ Dilation of Right Ureter with Intraluminal Device, Via Natural or Artificial Opening Endoscopic (ICD-10-PCS; principal; 2024-03-01 14:25)
DX: N13.2 Hydronephrosis with renal and ureteral calculous obstruction (principal); I13.0 Hypertensive heart and chronic kidney disease with heart failure and stage 1 through stage 4 chronic kidney disease, or unspecified chronic kidney disease; Z59.00 Homelessness unspecified; N17.0 Acute kidney failure with tubular necrosis; J45.909 Unspecified asthma, uncomplicated; E78.00 Pure hypercholesterolemia, unspecified; F41.9 Anxiety disorder, unspecified; R74.01 Elevation of levels of liver transaminase levels; N18.30 Chronic kidney disease, stage 3 unspecified; F32.A Depression, unspecified; I50.9 Heart failure, unspecified; E11.22 Type 2 diabetes mellitus with diabetic chronic kidney disease; Z90.710 Acquired absence of both cervix and uterus; Z90.5 Acquired absence of kidney; Z90.49 Acquired absence of other specified parts of digestive tract; Z79.899 Other long term (current) drug therapy; Z88.5 Allergy status to narcotic agent; Z87.442 Personal history of urinary calculi
CPT/HCPCS: 36415; 74176; 74420; 76000; 80053; 80061; 81001; 82948; 83036; 83735; 84100; 84439; 84443; 85025; 85610; 85730; 87081; 93005; 96372; 99285; A4615; A4618; A7000; C1758; C1769; C1894; C2617; G0378; J0690; J0780; J1100; J1170; J1644; J1885; J2250; J2405; J2704; J3010; J3490; J7030; J7120; Q9967

== ENCOUNTER 2024-12-28 15:30 | Emergency (ER) | payer BC, MEDICAID ==
[~2024-12-28] VITALS: Ht 149.9 cm; Wt 90.2 kg
[~2024-12-28 15:30] MED LIST changes: +ACET-1008 PO; -CIPR7.5D2 LEFT EAR; -MOT200T PO; +OXYB5TAB21 PO; +tamsulosin capsule PO
[2024-12-28 15:35] VITALS: BP 140/91; PULSE 92; RESP 16; TEMP 98; O2SAT 95
[2024-12-28] MEDS ORDERED: ONDA-243 PO (17:06)
[2024-12-28] MEDS ORDERED: HYDR-3965 PO (17:06)
== END 2024-12-28 17:17 | disposition home or self-care (01) ==
LOC: ER 15:30
DX: S42.002A Fracture of unspecified part of left clavicle, initial encounter for closed fracture (principal); M25.512 Pain in left shoulder; I13.0 Hypertensive heart and chronic kidney disease with heart failure and stage 1 through stage 4 chronic kidney disease, or unspecified chronic kidney disease; E11.22 Type 2 diabetes mellitus with diabetic chronic kidney disease; I50.9 Heart failure, unspecified; N18.9 Chronic kidney disease, unspecified; E78.00 Pure hypercholesterolemia, unspecified; J45.909 Unspecified asthma, uncomplicated; M19.90 Unspecified osteoarthritis, unspecified site; F41.9 Anxiety disorder, unspecified; F32.A Depression, unspecified; Z87.442 Personal history of urinary calculi; Z90.49 Acquired absence of other specified parts of digestive tract; Z90.710 Acquired absence of both cervix and uterus; Z88.5 Allergy status to narcotic agent; Z79.1 Long term (current) use of non-steroidal anti-inflammatories (NSAID); Z79.899 Other long term (current) drug therapy; Z59.00 Homelessness unspecified; X58.XXXA Exposure to other specified factors, initial encounter; Y93.89 Activity, other specified; Y92.89 Other specified places as the place of occurrence of the external cause; Y99.8 Other external cause status
CPT/HCPCS: 73030; 99283; A4565

== ENCOUNTER 2025-03-17 11:26 | Emergency (ER) | payer BC, MEDICAID ==
[~2025-03-17] VITALS: Ht 149.9 cm; Wt 93.8 kg
[~2025-03-17 11:26] MED LIST changes: +ONDA-243 PO
[2025-03-17 11:34] VITALS: BP 159/81; PULSE 82; TEMP 97.8; O2SAT 98
--- NOTE | 2025-03-17 12:18 | RADIOLOGY REPORT ---
CLINICAL INDICATION: Shoulder Pain TECHNIQUE: LEFT DI SHOULDER, COMPLETE (MIN 2 VWS) Comparison: DI SHOULDER, COMPLETE (MIN 2 VWS) on DOS: 12/28/24 FINDINGS/IMPRESSION: : There is no evidence of acute fracture or dislocation. Subcentimeter ossific density at the lateral margin of the rotator cuff is nonspecific but can be see n in calcific tendinitis or chronic degenerative rotator cuff change.
[2025-03-17 14:42] VITALS: RESP 15
[2025-03-17] MEDS: ketorolac trometh 30MG/ML vial 30 MG/ML VIAL IM ONE (14:42)
--- NOTE | 2025-03-17 14:59 | Physician Documentation ---
History of Present Illness ~ Chief Complaint: Pain Stated Complaint: COLLAR BONE PAIN Time Seen by MD: 13:14 Primary Medical Doctor: Mello BRUNNER HPI 64-year-old female presents to the ED with a complaint of left shoulder pain. She states that she has a history of clavicle fracture on the same side. Adds that when she sleeps on her left side she has increased pain she denies any acute injury however. Tetanus within 5 years: No Medication Reconciliation Allergies: Coded Allergies: codeine (Verified Allergy, Unknown, 03/17/25) Scheduled Acetaminophen (Tylenol), 1 TAB PO Q8H, (Reported) Albuterol Sulfate (Proventil Hfa), 2 PUFFS INH Q6H Carbamide Peroxide (Ear Wax Drops), 5 DROP EACH EAR Q12H Fluoxetine Hcl* (Prozac*), 20 MG PO BID, (Reported) Hydrocodone/Acetaminophen (Vicodin 5-500 Tablet), 1 TAB PO Q6H Ipratropium [place] Nasal [place]* (Atrovent Nasal [place] 0.06*), 2 SPRAY NA TID [tamsulosin capsule], 0.4 MG PO HS Scheduled PRN Cyclobenzaprine* (Cyclobenzaprine*), 1 TABLET PO Q8H PRN for muscle spasms ONDANSETRON ODT 4mg tablet (Ondansetron Odt), 1 TAB PO Q6H PRN PRN for nausea/vomiting Oxybutynin Chloride (Oxybutynin Chloride), 5 MG PO BID PRN for bladder spasms/urinary discomf Past Medical History Past Medical History: Congestive Heart Failure, High Cholesterol, Hypertension, Asthma, Chronic Kidney Disease, Kidney Stones, Renal Disease, UTI, Diabetes, Arthritis, Anxiety, Depression Past Surgical History: cholecystectomy, hysterectomy Other Past Surgical History: Left nephrectomy Alcohol Use: Sober Drug Use: none Lives with: Family Lives In: Homeless Occupation: disabled Review of Systems All Other Systems at this time: Reviewed and Negative ROS As stated above in the HPI, otherwise all systems are reviewed and negative. Physical Exam Vital Signs: Temperature: 97.8, Source: Temporal, Heart Rate: 82, Respiratory Rate: 15, BP: 159/81, Pulse Oximetry: 98, Weight: 93.750 Physical Exam General: Alert, no apparent distress. HEENT: PERRL, EOMI, no injection, moist mucous membranes. Extremities: Normal range of motion, no deformity. Positive drop-arm test on the left side Neurologic: Oriented x4. Psychiatric: Normal mood and affect. Skin: Normal color, warm and dry. No edema, no ecchymosis. Progress Results/Orders Results/Orders Orders - JASKARAN PISANO NP Shoulder, Complete (Min 2 Vws) (03/17/25 11:46) Completed Orders - JASKARAN PISANO NP Shoulder, Complete (Min 2 Vws) (03/17/25 11:46) Ketorolac Trometh 30mg/Ml Vial (Toradol (03/17/25 14:05) Medications Received in ER Medications (Trade) Dose Ordered Sig/Shannan Route PRN Reason Start Time Stop Time Status Last Admin Dose Admin (Toradol inj. 30mg/ml) 30 mg ONCE ONCE IM 03/17/25 14:05 03/17/25 14:06 DC 03/17/25 14:42 30 MG Vital Signs 03/17/25 03/17/25 11:34 14:42 Temp 97.8 Pulse 82 Resp 18 15 B/P (MAP) 159/81 Pulse Ox 98 Medical Decision Making Findings Patient does not present with any acute fractures however I do suspect that she has either rotator cuff tendinitis or a torn rotator cuff. Discussed with the patient at length about going to physical therapy to alleviate her symptoms and she seemed agreeable. Departure Disposition: 01 HOME / SELF CARE / HOMELESS Impression: Primary Impression: Chronic pain disorder Condition: Stable Discharge Instructions: Rotator Cuff Tendinitis Referrals: NO PRIMARY CARE PROVIDER (PCP) Education Educated: Patient Educated regarding: diagnosis Signature Scribe Signature: t Attestation: The note accurately reflects work and decisions made by me.Jaskaran Sinclair NP 03/17/25 18:34 JASKARAN PISANO NP March 17, 2025 14:59
== END 2025-03-17 15:10 | disposition home or self-care (01) ==
LOC: ER 11:27
DX: G89.29 Other chronic pain (principal); M25.512 Pain in left shoulder; I13.0 Hypertensive heart and chronic kidney disease with heart failure and stage 1 through stage 4 chronic kidney disease, or unspecified chronic kidney disease; E11.22 Type 2 diabetes mellitus with diabetic chronic kidney disease; I50.9 Heart failure, unspecified; N18.9 Chronic kidney disease, unspecified; F41.9 Anxiety disorder, unspecified; F32.A Depression, unspecified; E78.00 Pure hypercholesterolemia, unspecified; J45.909 Unspecified asthma, uncomplicated; M19.90 Unspecified osteoarthritis, unspecified site; Z87.440 Personal history of urinary (tract) infections; Z88.5 Allergy status to narcotic agent; Z90.49 Acquired absence of other specified parts of digestive tract; Z90.710 Acquired absence of both cervix and uterus
CPT/HCPCS: 73030; 96372; 99283; J1885

== ENCOUNTER 2025-07-29 13:16 | Emergency (ER) | payer BC, MEDICAID ==
[~2025-07-29] VITALS: Ht 149.9 cm; Wt 95.0 kg
[~2025-07-29 13:16] MED LIST changes: -FLUO20CA39 PO; +FLUO20CA41 PO
[2025-07-29 13:21] VITALS: BP 120/78; PULSE 99; RESP 18; TEMP 97.9; O2SAT 95
--- NOTE | 2025-07-29 13:31 | Physician Documentation ---
History of Present Illness ~ Chief Complaint: Cough Stated Complaint: COUGH Time Seen by MD: 14:38 Primary Medical Doctor: NONE HPI Patient reports to the emergency department for evaluation of coughing x2 nights. Described as burning sensation in the chest and when she takes a deep breath stimulates her cough. Patient reports that her coughing increases at night in his bothersome. Endorses history of asthma when she was younger. Denies shortness of breath chest pain at this time. No recent illness injuries, travels or known ill contacts. Medication Reconciliation Allergies: Coded Allergies: codeine (Verified Allergy, Unknown, 03/17/25) Scheduled Acetaminophen (Tylenol), 1 TAB PO Q8H, (Reported) Albuterol Sulfate (Proventil Hfa), 2 PUFFS INH Q6H Albuterol Sulfate (Ventolin Hfa), 2 PUFFS INH Q4HPRN Carbamide Peroxide (Ear Wax Drops), 5 DROP EACH EAR Q12H Fluoxetine Hcl* (Prozac*), 20 MG PO BID, (Reported) Hydrocodone/Acetaminophen (Vicodin 5-500 Tablet), 1 TAB PO Q6H Ipratropium [place] Nasal [place]* (Atrovent Nasal [place] 0.06*), 2 SPRAY NA TID Prednisone* (Prednisone*), 2 TAB PO DAILY [tamsulosin capsule], 0.4 MG PO HS Scheduled PRN Benzonatate* (Benzonatate*), 1-2 CAP PO Q6H PRN for cough Cyclobenzaprine* (Cyclobenzaprine*), 1 TABLET PO Q8H PRN for muscle spasms ONDANSETRON ODT 4mg tablet (Ondansetron Odt), 1 TAB PO Q6H PRN PRN for nausea/vomiting Oxybutynin Chloride (Oxybutynin Chloride), 5 MG PO BID PRN for bladder spasms/urinary discomf Past Medical History Past Medical History: Congestive Heart Failure, High Cholesterol, Hypertension, Asthma, Chronic Kidney Disease, Kidney Stones, Renal Disease, UTI, Diabetes, Arthritis, Anxiety, Depression Past Surgical History: cholecystectomy, hysterectomy Other Past Surgical History: Left nephrectomy Alcohol Use: Sober Drug Use: none Lives with: Family Lives In: Homeless Occupation: disabled Physical Exam Vital Signs: Temperature: 97.9, Source: Temporal, Heart Rate: 99, Respiratory Rate: 18, BP: 120/78, Pulse Oximetry: 95, Weight: 95.000 Oxygen Flow Rate: 0 Progress Results/Orders Results/Orders Vital Signs 07/29/25 13:21 Temp 97.9 Pulse 99 Resp 18 B/P (MAP) 120/78 Pulse Ox 95 O2 Flow Rate 0 Laboratory Tests Test 07/29/25 13:44 White Blood Count 5.2 Red Blood Count 4.22 Hemoglobin 13.0 Hematocrit 38.6 Mean Corpuscular Volume 91.3 Mean Corpuscular Hemoglobin 30.8 Mean Corpuscular Hemoglobin Concent 33.8 Red Cell Distribution Width 14.4 Platelet Count 330 Mean Platelet Volume 7.5 Neutrophils (%) (Auto) 33.2 L Lymphocytes (%) (Auto) 47.8 Monocytes (%) (Auto) 11.9 Eosinophils (%) (Auto) 5.7 Basophils (%) (Auto) 1.4 H Neutrophils # (Auto) 1.7 L Lymphocytes # (Auto) 2.5 Monocytes # (Auto) 0.6 Eosinophils # (Auto) 0.3 Basophils # (Auto) 0.1 CBC Comment Sodium Level 143 Potassium Level 3.9 Chloride Level 106 Carbon Dioxide Level 26.0 Anion Gap 11 Blood Urea Nitrogen 38 H Creatinine 1.59 H Estimated GFR/1.73 m2 33 BUN/Creatinine Ratio 23.9 H Glucose Level 186 H Calcium Level 9.2 Total Bilirubin 0.3 Aspartate Amino Transf (AST/SGOT) 26 Alanine Aminotransferase (ALT/SGPT) 50 Alkaline Phosphatase 94 Pro-B-Type Natriuretic Peptide < 30 Total Protein 8.0 Albumin 3.8 Globulin 4.2 Albumin/Globulin Ratio 0.9 L Chemistry Comments Medical Decision Making Differential Diagnosis Patient examination history consistent with acute bronchitis with clear chest x- ray imaging not indicated pneumonia. We will begin prednisone, Tessalon Perles and albuterol. Patient understands to follow up with the primary care physician. Many differential respiratory cardio pulmonary etiologies considered to include limited to CHF, PE, pneumonia, other infectious pulmonary etiologies, endocarditis, pericarditis. Patient's safely discharged in the emergency department normotensive non hypoxic. Departure Disposition: HOME / SELF CARE / HOMELESS Impression: Primary Impression: Acute bronchitis Qualified Codes: J20.9 - Acute bronchitis, unspecified Condition: Stable Discharge Instructions: Bronchitis Additional Instructions: Begin medications as directed and make follow up appointment with your primary care physician in 5-7 days for review of today's labs and follow up to today's examination. Thank you for visiting [facility]. Referrals: NO PRIMARY CARE PROVIDER (PCP) Prescriptions Benzonatate* (Benzonatate*) 100 Mg Capsule 1-2 CAP PO Q6H PRN for cough, #30 CAP Prov: PATRICIA LOREDO 07/29/25 Prednisone* (Prednisone*) 20 Mg Tablet 2 TAB PO DAILY, #10 TAB Prov: PATRICIA LOREDO 07/29/25 Albuterol Sulfate (Ventolin Hfa) 90 Mcg Hfa.aer.ad 2 PUFFS INH Q4HPRN, #1 INHALER Prov: PATRICIA LOREDO 07/29/25 Education Educated: Patient Educated regarding: diagnosis, treatment Signature Scribe Signature: . Attestation: . TRACEY JUDGE Jul 29, 2025 13:31 PATRICIA LOREDO Jul 29, 2025 15:21
[2025-07-29 13:52] LABS: MEAN PLATELET VOLUME 7.5 FL (7.4-10.4); RED CELL DISTRIBUTION WIDTH 14.4 % (11.5-14.5)
[2025-07-29 14:09] LABS: CREATININE 1.59 MG/DL (0.40-0.90); TOTAL CARBON DIOXIDE 26.0 MMOL/L (24-32); eCRCL 24 ML/MIN; eGFR 33 ML/MIN
[2025-07-29 14:14] LABS: PRO BRAIN NATRIURETIC PEPTIDE < 30 PG/ML (0-125)
--- NOTE | 2025-07-29 14:26 | RADIOLOGY REPORT ---
EXAM: DI CHEST,SINGLE VIEW Indication: COUGH Technique: Single frontal view of the chest was obtained Comparison: CHEST,SINGLE VIEW on DOS: 05/16/22, CHEST,SINGLE VIEW on DOS: 06/18/21 FINDINGS: Lines and Tubes: None Lungs: No focal consolidation. Pleura: No effusion. No pneumothorax. Cardiomediastinal contours: Unremarkable Bones: No acute osseous abnormality. IMPRESSION: No acute cardiopulmonary disease.
[2025-07-29] MEDS ORDERED: PRED20TA PO (15:21)
[2025-07-29] MEDS ORDERED: BENZ-38 PO (15:21)
[2025-07-29] MEDS ORDERED: ALBU18HF2 INH (15:21)
== END 2025-07-29 15:50 | disposition home or self-care (01) ==
LOC: ER 13:16
DX: J20.9 Acute bronchitis, unspecified (principal); E11.22 Type 2 diabetes mellitus with diabetic chronic kidney disease; E78.00 Pure hypercholesterolemia, unspecified; I13.0 Hypertensive heart and chronic kidney disease with heart failure and stage 1 through stage 4 chronic kidney disease, or unspecified chronic kidney disease; I50.9 Heart failure, unspecified; N18.9 Chronic kidney disease, unspecified; F32.A Depression, unspecified; J45.909 Unspecified asthma, uncomplicated; F41.9 Anxiety disorder, unspecified; M19.90 Unspecified osteoarthritis, unspecified site; Z88.5 Allergy status to narcotic agent; Z88.8 Allergy status to other drugs, medicaments and biological substances; Z90.49 Acquired absence of other specified parts of digestive tract; Z90.5 Acquired absence of kidney; Z90.710 Acquired absence of both cervix and uterus
CPT/HCPCS: 36415; 71045; 80053; 83880; 85025; 99284